=== PATIENT | male | born 1980 | race Caucasian/White ===

== ENCOUNTER 2018-11-26 08:02 | Inpatient (IN) | payer SELFPAY ==
[~2018-11-26] VITALS: Ht 190.5 cm; Wt 108.9 kg
[~2018-11-26 08:02] MED LIST: CODE-54 PO; NAPR-243 PO; OXYC-272 PO
--- OUTSIDE RECORDS SUMMARY | 2018-11-26 08:06 | XMS REPORT ---
Author Author Migration, Doctor Organization [facility] Address Unknown Phone Unavailable Care Team Providers Care Radiation Engineer Name Role Phone Migration, Doctor Unavailable Unavailable PROBLEMS Type Condition ICD9-CM Code [id number] Code Onset Dates Condition Status SNOMED Code Problem Pain in soft tissues of limb 729.5 Active 84034915 Problem Pain in joint, lower leg 719.46 Active 721228588 Problem Other, multiple and ill-defined closed fractures of lower limb 827.0 Active [id number] ALLERGIES No Information ENCOUNTERS Encounter Location Date Diagnosis [facility] [id number] [place] [address] Aug, [facility] [id number] [place] [address] Aug, [facility] [id number] [place] [address] Jun, [facility] [id number] [place] [address] Jun, [facility] [id number] [place] [address] Aug, [facility] [id number] [place] [address] Aug, [facility] [id number] [place] [address] Aug, [facility] [id number] [place] [address] Aug, [facility] [id number] [place] [address] Aug, [facility] [id number] [place] [address] Aug, [facility] [place] [facility] [address] [id number] [place] [address] Aug, [facility] [place] [facility] [address] [id number] [place] [address] Aug, [facility] [place] [facility] [address] [id number] [place] [address] Jul, [facility] [place] [facility] [address] [id number] [place] [address] Jul, [facility] [place] [facility] [address] [id number] [place] [address] Apr, [facility] [place] [facility] [address] [id number] [place] [address] Apr, [facility] [place] [facility] [address] [id number] [place] [address] Mar, [facility] [place] [facility] [address] [id number] [place] [address] Mar, [facility] [place] [facility] [address] [id number] [place] [address] Feb, [facility] [place] [facility] [address] [id number] [place] [address] Feb, [facility] [place] [facility] [address] [id number] [place] [address] Feb, [facility] [place] [facility] [address] [id number] [place] [address] Feb, [facility] [place] [facility] [address] [id number] [place] [address] Dec, [facility] [place] [facility] [address] [id number] [place] [address] Dec, [facility] [place] [facility] [address] [id number] [place] [address] Nov, [facility] [place] [facility] [address] [id number] [address] Nov, [facility] [address] [id number] [address] September, [facility] [address] [address] September, [facility] [address] [address] Aug, [facility] [id number] [place] [address] Aug, [facility] [address] [address] Aug, [facility] [id number] [place] [address] Aug, [facility] [address] [address] Mar, [facility] [address] [address] Mar, [facility] [address] [id number] [address] Nov, IMMUNIZATIONS No Known Immunizations SOCIAL HISTORY Never Assessed REASON FOR VISIT EMR-[facility] PLAN OF CARE VITAL SIGNS MEDICATIONS Unknown Medications RESULTS No Results PROCEDURES No Known procedures INSTRUCTIONS MEDICATIONS ADMINISTERED No Known Medications
--- OUTSIDE RECORDS SUMMARY | 2018-11-26 08:06 | XMS REPORT | Continuity of Care Document ---
Author Organization Unknown Address Unknown Allergies Active Description Code Type Severity Reaction Onset Reported/Identified Relationship to Patient Clinical Status Yes Demerol Drug Allergy 08/20/2012 Yes Demerol Drug Allergy N/A N/A 08/20/2012 Yes meperidine [id number] Drug Allergy Unknown N/A 01/16/2014 Yes meperidine [id number] Drug Allergy Unknown PT HAS RECEIVED 07/05/2014 Medications There is no data. Problems Date Dx Coded Attending Type Code Diagnosis Diagnosed By 05/27/2010 316 [employer] WITH DISEASES CLASSIFIED ELSEWHERE 05/27/2010 316 [employer] WITH DISEASES CLASSIFIED ELSEWHERE 05/27/2010 316 [employer]ATED WITH DISEASES CLASSIFIED ELSEWHERE 05/27/2010 LISETH ISAAC DO 316 [employer] WITH DISEASES CLASSIFIED ELSEWHERE 05/27/2010 GONZALEZ GOLDBERG MD 316 [employer] WITH DISEASES CLASSIFIED ELSEWHERE 05/27/2010 LISETH ISAAC DO 316 [employer] WITH DISEASES CLASSIFIED ELSEWHERE 05/27/2010 316 [employer] WITH DISEASES CLASSIFIED ELSEWHERE 05/27/2010 PRISCILLA LUNDY MD 316 [employer] WITH DISEASES CLASSIFIED ELSEWHERE 08/20/2012 719.46 PAIN IN JOINT INVOLVING LOWER LEG 08/20/2012 719.46 joint pain in the left knee 08/20/2012 719.46 joint pain in the left knee 08/20/2012 LISETH ISAAC DO 719.46 joint pain in the left knee 08/20/2012 GONZALEZ GOLDBERG MD 719.46 joint pain in the left knee 08/20/2012 LISETH ISAAC DO 719.46 joint pain in the left knee 08/20/2012 PRISCILLA LUNDY MD 719.46 joint pain in the left knee 08/27/2013 LISETH ISAAC DO 729.5 PAIN IN LIMB 08/27/2013 PRISCILLA LUNDY MD 729.5 PAIN IN LIMB 01/16/2014 PAOLA HERNANDEZ DO Ot 844.9 01/16/2014 PAOLA HERNANDEZ DO Ot 959.7 01/16/2014 PAOLA HERNANDEZ DO Ot E000.8 01/16/2014 PAOLA HERNANDEZ DO Ot E849.0 01/16/2014 PAOLA HERNANDEZ DO Ot E927.0 06/28/2014 KAMRON HUTCHINS, PRISCILLA 827.0 OTHER MULTIPLE AND ILL-DEFINED FRACTURES OF LOWER LIMB CLOSED 06/28/2014 Ot 724.5 06/28/2014 VINNIE MERRITT MD Ot 719.46 06/28/2014 VINNIE MERRITT MD Ot 719.46 07/05/2014 CHAD HUTCHINS, JAZMINE Ordonez Ot 823.01 07/05/2014 JAZMINE BONILLA MD Ot 824.0 07/05/2014 JAZMINE BONILLA MD Ot 845.00 07/05/2014 JAZMINE BONILLA MD Ot E000.8 07/05/2014 JAZMINE BONILLA MD Ot E849.6 07/05/2014 JAZMINE BONILLA MD Ot E888.9 Procedures Code [place] [address] XRAY KNEE LEFT, 1 OR 2 VIEWS 08/20/2012 ORTHO WILLAM PERRY 08/20/2012 00540 ROUTINE VENIPUNCTURE 09/04/2012 82218 MRI EXTREMITY JOINT, LOWER LEFT, W/O CONTRAST 09/08/2012 85710 US LOWER EXTREMITY ULTRASOUND 09/08/2012 04464 CMP 09/08/2012 59149 CBC 09/08/2012 Orthopedi Willam Perry 11/27/2012 34538 JOINT INJECTION- LARGE JOINT (SPECIFY MEDCIN DESCRIPTION) 02/19/2013 83826 XRAY FOOT RIGHT COMP MIN 3 VIEWS 08/27/2013 50790 XRAY TIBIA/FIBULA RIGHT 06/28/2014 Results There is no data. Encounters ACCT No. Visit Date/Time Discharge Status Pt. Type Provider Facility Loc./Unit Complaint [id number] 06/28/2014 11:47:00 06/28/2014 23:59:59 CLS Outpatient PRISCILLA LUNDY MD [id number] 08/27/2013 13:42:00 08/27/2013 23:59:59 CLS Outpatient PONCHO CROW LISETH Jsoe [id number] 08/05/2013 10:52:00 08/05/2013 23:59:59 CLS Outpatient GONZALEZ GOLDBERG MD [id number] 02/19/2013 15:12:00 02/19/2013 23:59:59 CLS Outpatient LISETH ISAAC DO [id number] 08/20/2012 09:08:00 08/20/2012 23:59:59 CLS Outpatient [id number] 11/19/2011 12:30:00 11/19/2011 23:59:59 CLS Outpatient [id number] 11/27/2012 14:29:00 Document Registration [id number] 09/04/2012 15:16:00 Document Registration [id number] 07/05/2014 09:30:00 07/05/2014 17:50:00 DIS Outpatient JAZMINE BONILLA MD [facility] [id number] 07/02/2014 13:35:00 07/02/2014 23:59:59 CLS Outpatient JAZMINE BONILLA MD [facility] PREOP [id number] 01/16/2014 17:23:00 01/16/2014 18:35:00 DIS Emergency PAOLA HERNANDEZ DO [facility] ER [id number] 09/18/2012 11:58:00 09/18/2012 23:59:59 CLS Outpatient VINNIE MERRITT MD [facility] RAD [id number] 09/12/2012 09:51:00 09/12/2012 23:59:59 CLS Outpatient VINNIE MERRITT MD [facility] RAD [id number] 11/23/2009 12:46:00 Document Registration
--- OUTSIDE RECORDS SUMMARY | 2018-11-26 08:06 | XMS REPORT ---
Author Author Migration, Doctor Organization [facility] Address Unknown Phone Unavailable Care Team Providers Care Blue Leather Setter Name Role Phone Migration, Doctor Unavailable Unavailable PROBLEMS Type Condition ICD9-CM Code BSB92-ML Code Onset Dates Condition Status SNOMED Code Problem Pain in soft tissues of limb 729.5 Active 67722679 Problem Pain in joint, lower leg 719.46 Active 718846442 Problem Other, multiple and ill-defined closed fractures of lower limb 827.0 Active 96581255 ALLERGIES Substance Reaction Event Type Date Status Demerol Unknown Drug Allergy Aug, Active ENCOUNTERS Encounter Location Date Diagnosis [facility] [id number] [place] [address] Aug, [facility] [id number] [place] [address] Aug, [facility] [id number] [place] [address] Jun, [facility] [id number] [place] [address] Jun, [facility] [id number] [place] [address] Aug, [facility] [id number] [place] [address] Aug, [facility] [id number] [place] [address] Aug, [facility] [id number] [place] [address] Aug, [facility] [id number] [place] [address] Aug, [facility] [id number] [place] [address] Aug, [facility] [place] [facility] [address] [id number] [place] [address] Aug, [facility] [place] [facility] [address] [id number] [place] [address] Aug, [facility] [place] [facility] [address] [id number] [place] [address] Jul, [facility] [place] [facility] [address] [id number] [place] [address] Jul, [facility] [place] [facility] [address] [id number] [place] [address] Apr, [facility] [place] [facility] [address] [id number] [place] [address] Apr, [facility] [place] [facility] [address] [id number] [place] [address] Mar, [facility] [place] [facility] [address] [id number] [place] [address] Mar, [facility] [place] [facility] [address] [id number] [place] [address] Feb, [facility] [place] [facility] [address] [id number] [place] [address] Feb, [facility] [place] [facility] [address] [id number] [place] [address] Feb, [facility] [place] [facility] [address] [id number] [place] [address] Feb, [facility] [place] [facility] [address] [id number] [place] [address] Dec, [facility] [place] [facility] [address] [id number] [place] [address] Dec, [facility] [place] [facility] [address] [id number] [place] [address] Nov, [facility] [place] [facility] [address] [address] Nov, [facility] [address] [address] September, [facility] [address] [address] September, [facility] [address] [address] Aug, [facility] [address] [address] Aug, [facility] [address] [address] Aug, [facility] [address] [address] Aug, [facility] [address] [address] Mar, [facility] [address] [address] Mar, [facility] [id number] [address] Nov, IMMUNIZATIONS No Known Immunizations SOCIAL HISTORY Never Assessed REASON FOR VISIT EMR-[facility] PLAN OF CARE VITAL SIGNS MEDICATIONS Unknown Medications RESULTS No Results PROCEDURES No Known procedures INSTRUCTIONS MEDICATIONS ADMINISTERED No Known Medications
[2018-11-26] MEDS ORDERED: NS IV 1000 ML 1,000 ML IV SCH (08:32)
[2018-11-26] MEDS ORDERED: KETOROLAC 30 MG/ML VIAL IVP STA (08:32)
[2018-11-26] MEDS ORDERED: ACETAMINOPHEN 500 MG TAB (TYLENOL) PO PRN ×2 (08:45→11:30)
--- NOTE | 2018-11-26 08:45 | ED Upper Extremity ---
General Chief Complaint: Upper Extremity Stated Complaint: ELBOW INJ Nursing Triage Note: PT AMB TO RM 10 WITH COMPLAINT OF RIGHT ELBOW PAIN, SWELLING, AND REDNESS. STATES HE WAS BIT BY SOMETHING IN THE LAST FEW DAYS. STATES REDNESS HAS WORSENED. STATES LANCED AREA AT HOME, DID NOT SQUEEZE ANYTHING OUT. Nursing Sepsis Screen: No Definite Risk Source: patient Exam Limitations: no limitations History of Present Illness Date Seen by Provider: Nov 26, 2018 Time Seen by Provider: 08:22 Initial Comments Here with report of right elbow pain and swelling as well as redness that is increasing over the last 12 hours. He thinks he got bit by something on the injured elbow a few days ago. Noted swelling to the area. Tried to mary lou it with a needle last night and he did not get any purulent drainage. Redness increased. He did frank the wound edges. Redness does appear to be slightly outside of the border currently. Does have fever as tachycardic. He did have to ride a bike here today. States the redness and pain worsens during the bike ride. He has not had anything for pain or fever today. Onset: other (2 days ago) Severity: moderate Pain/Injury Location: right arm, right elbow Method of Injury: unknown Modifying Factors: Improves With Immobilization; Worse With Movement; Improves With Rest Allergies and Home Medications Allergies Coded Allergies: meperidine (Unverified Allergy, Unknown, PT HAS RECEIVED FENTANYL IN THE PAST W/O ISSUE, 07/05/14) Home Medications Naproxen 500 Mg Tablet, 500 MG PO BID, (Reported) Oxycodone Hcl/Acetaminophen 1 Tab Tablet, 1-2 TAB PO Q4-6HR PRN for PAIN MAY TAKE 1 OR 2 TABS BY MOUTH EVERY 4 HRS NEEDED FOR PAIN. LAST DOSE, 2 TABS, GIVEN AT 4:25 PM 07/05/14. DO NOT EXCEED 4000 MG TYLENOL IN A 24 HR PERIOD. Prescribed by: PATRIC HANSEN on 07/05/14 5961 Patient Home Medication List Home Medication List Reviewed: Yes Review of Systems Constitutional: see HPI; No chills, No fever EENTM: no symptoms reported Respiratory: no symptoms reported Cardiovascular: no symptoms reported Gastrointestinal: no symptoms reported Musculoskeletal: see HPI, joint pain, joint swelling, muscle pain Skin: change in color, lesions Psychiatric/Neurological: No Symptoms Reported All Other Systems Reviewed Negative Unless Noted: Yes Past Upijvwz-Zjlzhl-Bxzqmm Hx Past Med/Social Hx: Reviewed Nursing Past Med/Soc Hx Patient Social History Alcohol Use: Denies Use Recreational Drug Use: No Smoking Status: Current Everyday Smoker Type Used: Cigarettes Recent Foreign Travel: No Contact w/Someone Who Travel: No Recent Infectious Disease Expo: No Past Medical History Surgeries: Yes Appendectomy, Orthopedic Respiratory: No Cardiac: No Neurological: No Reproductive Disorders: No Sexually Transmitted Disease: No Gastrointestinal: No Musculoskeletal: Yes (RIGHT ANKLE) Fibromyalgia Endocrine: No Cancer: No Psychosocial: No Integumentary: No Blood Disorders: No Family Medical History Reviewed Nursing Family Hx Physical Exam Vital Signs Vital Signs - First Documented 11/26/18 08:09 Temp 100.2 Pulse 113 Resp 20 B/P (MAP) 140/91 (107) Pulse Ox 97 O2 Delivery Room Air Capillary Refill : Less Than 3 Seconds Height, Weight, BMI Height: 6'3.00" Weight: 240lbs. oz. 108.089114wq; BMI Method:Stated General Appearance: WD/WN, no apparent distress HEENT: PERRL/EOMI, pharynx normal Neck: full range of motion, supple Cardiovascular: no murmur, tachycardia Respiratory: lungs clear, normal breath sounds, no respiratory distress Gastrointestinal: non tender, soft Back: normal inspection, no CVA tenderness, no vertebral tenderness Shoulder: normal inspection, normal ROM Elbow/Forearm: normal ROM, Right, pain (around the elbow both above and below where there is noted to be swelling and erythema), soft tissue tenderness, swelling (involving the right arm. Greatest around the right elbow. There is an indurated/tight spot to the elbow prominence with small wound centrally in the area that is 3-4 mm.) Wrist: Yes normal inspection, Yes no evidence of injury, Yes normal ROM Hand: normal inspection, non-tender, normal ROM, Bilateral Neurologic/Psychiatric: alert, oriented x 3 Skin: warm/dry, other (erythema noted to right arm from mid biceps down to mid forearm circumferentially. Swelling noted in the same area.) Progress/Results/Core Measures Results/Orders Lab Results Laboratory Tests Test 11/26/18 08:49 Range/Units White Blood Count 14.8 H 4.3-11.0 10^3/uL Red Blood Count 4.75 4.35-5.85 10^6/uL Hemoglobin 14.0 13.3-17.7 G/DL Hematocrit 42 40-54 % Mean Corpuscular Volume 88 80-99 FL Mean Corpuscular Hemoglobin 30 25-34 PG Mean Corpuscular Hemoglobin Concent 34 32-36 G/DL Red Cell Distribution Width 13.6 10.0-14.5 % Platelet Count 357 130-400 10^3/uL Mean Platelet Volume 9.2 7.4-10.4 FL Neutrophils (%) (Auto) 61 42-75 % Lymphocytes (%) (Auto) 27 12-44 % Monocytes (%) (Auto) 10 0-12 % Eosinophils (%) (Auto) 1 0-10 % Basophils (%) (Auto) 0 0-10 % Neutrophils # (Auto) 9.1 H 1.8-7.8 X 10^3 Lymphocytes # (Auto) 4.0 1.0-4.0 X 10^3 Monocytes # (Auto) 1.5 H 0.0-1.0 X 10^3 Eosinophils # (Auto) 0.2 0.0-0.3 10^3/uL Basophils # (Auto) 0.1 0.0-0.1 10^3/uL Neutrophils % (Manual) 45 % Lymphocytes % (Manual) 39 % Monocytes % (Manual) 7 % Eosinophils % (Manual) 2 % Basophils % (Manual) 2 % Band Neutrophils 1 % Hypersegmented Neutrophils SLIGHT Reactive Lymphocytes 4 % Toxic Granulation 1+ Poikilocytosis SLIGHT Stomatocytes SLIGHT Elliptocytes SLIGHT Prothrombin Time 13.6 12.2-14.7 SEC INR Comment 1.0 0.8-1.4 Activated Partial Thromboplast Time 33 24-35 SEC Sodium Level 137 135-145 MMOL/L Potassium Level 4.2 3.6-5.0 MMOL/L Chloride Level 101 98-107 MMOL/L Carbon Dioxide Level 24 21-32 MMOL/L Anion Gap 12 5-14 MMOL/L Blood Urea Nitrogen 19 H 7-18 MG/DL Creatinine 1.12 0.60-1.30 MG/DL Estimat Glomerular Filtration Rate > 60 BUN/Creatinine Ratio 17 Glucose Level 99 70-105 MG/DL Lactic Acid Level 0.79 0.50-2.00 MMOL/L Calcium Level 9.9 8.5-10.1 MG/DL Corrected Calcium 9.5 8.5-10.1 MG/DL Total Bilirubin 0.5 0.1-1.0 MG/DL Aspartate Amino Transf (AST/SGOT) 20 5-34 U/L Alanine Aminotransferase (ALT/SGPT) 43 0-55 U/L Alkaline Phosphatase 92 40-136 U/L C-Reactive Protein High Sensitivity 10.33 H 0.00-0.50 MG/DL Total Protein 8.0 6.4-8.2 GM/DL Albumin 4.5 3.2-4.5 GM/DL My Orders Orders - SOTO SIERRA MD Cbc With Automated Diff (11/26/18 08:32) Comprehensive Metabolic Panel (11/26/18 08:32) Blood Culture (11/26/18 08:32) Sputum Culture (11/26/18 08:32) Protime With Inr (11/26/18 08:32) Partial Thromboplastin Time (11/26/18 08:32) Acetaminophen Tablet (Tylenol Tablet) (11/26/18 08:45) Ed Iv/Invasive Line Start (11/26/18 08:32) Vital Signs Adult Sepsis Patie Q15M (11/26/18 08:32) O2 (11/26/18 08:32) Remove Rings In Anticipation O (11/26/18 08:32) Lactic Acid Analyzer (11/26/18 08:32) Ns Iv 1000 Ml (Sodium Chloride 0.9%) (11/26/18 08:32) Hs C Reactive Protein (11/26/18 08:32) Elbow, Right, 3 Views (11/26/18 08:32) Ketorolac Injection (Toradol Injection) (11/26/18 08:32) Manual Differential (11/26/18 08:49) Ceftriaxone For Iv Use (Rocephin For I (11/26/18 10:15) Tdap (Boostrix) Im (11/26/18 10:30) Medications Given in ED Current Medications Medications Dose Ordered Sig/Laura Route Start Time Stop Time Status Last Admin Dose Admin Acetaminophen 1,000 mg ONCE PRN PO 11/26/18 08:45 11/26/18 08:56 DC 11/26/18 08:55 1,000 MG Vital Signs/I&O 11/26/18 08:09 Temp 100.2 Pulse 113 Resp 20 B/P (MAP) 140/91 (107) Pulse Ox 97 O2 Delivery Room Air Blood Pressure Mean: 107 Progress Progress Note : Progress Note Seen and evaluated. IV, labs, blood cultures and lactic acid ordered. Normal saline 1 L bolus, Toradol 30 mg IV and Tylenol 1 g by mouth. Patient does have findings for sepsis including tachycardia and febrile with concerning area of infection. Monitor patient. 1017: Labs reviewed. Patient noted to have cellulitis and findings of systemic inflammation with elevated CRP and white count. Rocephin 1 g IV ordered. Tetanus updated. I discussed the case with Dr. Cook at 1015 and she accepts patient for admission. I did discuss the case with Dr. Knedall at 1017 and he accepts patient in consult. He requests ultrasound of the elbow which was ordered. We will initiate Rocephin and vancomycin orders. Discussed with patient and family who agree. Admit, inpatient status. Diagnostic Imaging Diagonstic Imaging: Xray Plain Films/CT/US/NM/MRI: elbow Comments [facility] [place] [place] NAME: AL CANCHOLA [facility] REC#: [id number] PT STATUS: REG ER : 1980 PHYSICIAN: SOTO SIERRA MD ADMIT DATE: 11/26/18/ER Draft Date of Exam:11/26/18 ELBOW, RIGHT, 3 VIEWS INDICATION: Recent injury to the right elbow, now with redness and swelling as well as fever. Time of exam: 9:12 AM 3 views of the right elbow were obtained. There is moderate soft tissue swelling about the posterior elbow. No soft tissue gas is seen. No bony destructive changes are seen. No definite elbow joint effusion is identified. No fracture or dislocation is seen. IMPRESSION: Moderate posterior soft tissue swelling. No other significant abnormality is seen. Dictated on workstation # [id number] Dict: 11/26/1816 Trans: 11/26/18 0921 MOLLY [id number] Interpreted by: ERNESTO YIP MD Electronically signed by: Departure Communication (Admissions) Time/Spoke to Admitting Phy: 10:15 Time/Spoke to Consulting Phy: 10:17 Impression Primary Impression: Right arm cellulitis Disposition: ADMITTED INPATIENT Condition: Stable Admissions Decision to Admit Reason: Admit from ER (General) Decision to Admit/Date: Nov 26, 2018 Time/Decision to Admit Time: 10:15 SOTO SIERRA MD Nov 26, 2018 08:45
[2018-11-26 09:06] LABS: BASOPHILS # (AUTO) 0.1 10^3/uL (0.0-0.1); BASOPHILS % (AUTO) 0 % (0-10); EOSINOPHILS # (AUTO) 0.2 10^3/uL (0.0-0.3); EOSINOPHILS % (AUTO) 1 % (0-10); HEMATOCRIT 42 % (40-54); LYMPHOCYTES % (AUTO) 27 % (12-44); MEAN CORPUSCULAR HEMOGLOBIN 30 PG (25-34); MEAN CORPUSCULAR HGB CONC 34 G/DL (32-36); MEAN CORPUSCULAR VOLUME 88 FL (80-99); MEAN PLATELET VOLUME 9.2 FL (7.4-10.4); MONOCYTES # (AUTO) 1.5 X 10^3 (0.0-1.0); MONOCYTES % (AUTO) 10 % (0-12); NEUTROPHILS # (AUTO) 9.1 X 10^3 (1.8-7.8); NEUTROPHILS % (AUTO) 61 % (42-75); PLATELET COUNT 357 10^3/uL (130-400); RED CELL DISTRIBUTION WIDTH 13.6 % (10.0-14.5); WHITE BLOOD COUNT 14.8 10^3/uL (4.3-11.0)
--- NOTE | 2018-11-26 09:21 | Diagnostic Imaging Report ---
INDICATION: Recent injury to the right elbow, now with redness and swelling as well as fever. Time of exam: 9:12 AM 3 views of the right elbow were obtained. There is moderate soft tissue swelling about the posterior elbow. No soft tissue gas is seen. No bony destructive changes are seen. No definite elbow joint effusion is identified. No fracture or dislocation is seen. IMPRESSION: Moderate posterior soft tissue swelling. No other significant abnormality is seen. Dictated by: Dictated on workstation # [id number]
[2018-11-26 09:29] LABS: PROTHROMBIN TIME PATIENT 13.6 SEC (12.2-14.7)
[2018-11-26 09:34] LABS: ALANINE AMINOTRANSFERASE 43 U/L (0-55); ALBUMIN 4.5 GM/DL (3.2-4.5); ALKALINE PHOSPHATASE 92 U/L (40-136); BILIRUBIN,TOTAL 0.5 MG/DL (0.1-1.0); BUN/CREATININE RATIO 17; CALCIUM 9.9 MG/DL (8.5-10.1); CARBON DIOXIDE 24 MMOL/L (21-32); CHLORIDE 101 MMOL/L (98-107); CREATININE SERUM 1.12 MG/DL (0.60-1.30); GFR ESTIMATED > 60; GLUCOSE 99 MG/DL (70-105); POTASSIUM 4.2 MMOL/L (3.6-5.0); SODIUM 137 MMOL/L (135-145)
[2018-11-26 10:12] LABS: BAND NEUTROPHILS 1 %; BASOPHILS % (MANUAL) 2 %; ELLIPT/OVALOCYTES SLIGHT; EOSINOPHILS % (MANUAL) 2 %; HYPERSEGMENTED NEUT SLIGHT; LYMPHOCYTES % (MANUAL) 39 %; MONOCYTES % (MANUAL) 7 %; NEUTROPHILS % (MANUAL) 45 %; POIKILOCYTOSIS SLIGHT; REACTIVE LYMPHOCYTES 4 %; STOMATOCYTES SLIGHT
[2018-11-26 10:13] LABS: TOXIC GRANULATION/VACUOLAZATIO 1+
[2018-11-26] MEDS ORDERED: cefTRIAXone FOR IV USE 1,000 MG in WATER (STERILE) FOR INJECTION 10 ML IV ONE (10:15)
[2018-11-26] MEDS ORDERED: TETANUS,DIPTH,PERTUSS P/F (BOOSTRIX) 0.5 ML VIAL IM ONE (10:30)
[2018-11-26] MEDS ORDERED: fentaNYL INJECTION 100 MCG/2 ML AMP IV PRN (11:30)
--- NOTE | 2018-11-26 11:30 | NUR ---
AL CANCHOLA admitted to room 410-1, with an admitting diagnosis of RIGHT ARM CELLULITIS, on 11/26/18 from ED via W/C, accompanied by ED STAFF. AL CANCHOLA introduced to surroundings, call light, bed controls, phone, TV, temperature control, lights, meal times, smoking policy, visitor policy, side rail policy, bathrooms and showers. Patient Rights given to patient in the handbook. AL CANCHOLA verbalizes understanding that [facility] is not responsible for the loss or damage to any personal effects or valuables that are kept in the patients possession during their hospitalization.
--- NOTE | 2018-11-26 11:33 | History & Physical-Hospitalist ---
History of Present Illness HPI/Chief Complaint CC: Right arm cellulitis HPI: This is a 38yoWM who presented to the ER with severe right arm swelling with redness and cellulitis. He thought that there was something in a puncture wound and he tried to explore it on his own at home and this happened three days ago and the right arm has begun to have an increase in swelling and erythema. He had a fever of 100.4 on admission and white count is 15,000. He was given a Tet anus update and Dr. Kendall has been consulted incase abscess formation occurs. He does have a history of working at [employer] in the [employer] department for ten years but has been disabled for a couple of years after breaking both legs requiring him to quit working. He does smoke, doesn't drink a lot of alcohol and is in agreement for the IV antibiotics and Dr. Kendall consultation. Source: patient Exam Limitations: no limitations Date Seen 11/26/18 Time Seen by a Provider: 11:30 Attending Physician Vero Cook DO PCP Referring Physician Date of Admission Nov 26, 2018 at 10:35 Home Medications & Allergies Home Medications Reviewed patient Home Medication Reconciliation performed by pharmacy medication reconciliations entry level installation technician and/or nursing. Patients Allergies have been reviewed. Allergies Allergies Coded Allergies meperidine (Unverified Allergy, Unknown, PT HAS RECEIVED FENTANYL IN THE PAST W/O ISSUE, 07/05/14) Past Pvluomt-Rxifle-Lfmjtf Hx Past Med/Social Hx: Reviewed Nursing Past Med/Soc Hx, Reviewed and Corrections made Patient Social History Marrital Status: cohabiting Alcohol Use: Denies Use Recreational Drug Use: No Smoking Status: Current Everyday Smoker Type Used: Cigarettes Recent Foreign Travel: No Contact w/other who traveled: No Recent Infectious Disease Expo: No Past Medical History Surgeries: Appendectomy, Orthopedic Reproductive: No Sexually Transmitted Disease: No Musculoskeletal: Fibromyalgia History of Blood Disorders: No Family History Reviewed Nursing Family Hx Review of Systems Constitutional: see HPI, fever EENTM: no symptoms reported Respiratory: no symptoms reported Cardiovascular: no symptoms reported Gastrointestinal: no symptoms reported Genitourinary: no symptoms reported Musculoskeletal: joint pain (right elbow) Skin: no symptoms reported Psychiatric/Neurological: No Symptoms Reported Physical Exam Physical Exam Vital Signs Vital Signs - First Documented 11/26/18 08:09 Temp 100.2 Pulse 113 Resp 20 B/P (MAP) 140/91 (107) Pulse Ox 97 O2 Delivery Room Air Capillary Refill : Less Than 3 Seconds Height, Weight, BMI Height: 6'3.00" Weight: 240lbs. oz. [id number]; BMI Method:Stated General Appearance: No Apparent Distress, WD/WN, Chronically ill Eyes: Right Eye Normal Inspection, Right Eye PERRL HEENT: PERRL/EOMI, Normal ENT Inspection, Pharynx Normal, Moist Mucous Membranes Neck: Full Range of Motion, Normal Inspection, Non Tender Respiratory: Chest Non Tender, Lungs Clear, Normal Breath Sounds, No Accessory Muscle Use, No Respiratory Distress Cardiovascular: Regular Rate, Rhythm, No Edema, No Gallop, No JVD, No Murmur, Normal Peripheral Pulses Gastrointestinal: Normal Bowel Sounds, No Organomegaly, No Pulsatile Mass, Non Tender, Soft Back: Normal Inspection, No CVA Tenderness, No Vertebral Tenderness Extremity: Normal Capillary Refill, Normal Inspection, Normal Range of Motion, Non Tender, No Calf Tenderness, No Pedal Edema, Other (right elbow region with erythem and elbow pain to palpation) Neurologic/Psychiatric: Alert, Oriented x3, No Motor/Sensory Deficits, Normal Mood/Affect Skin: Normal Color, Warm/Dry Lymphatic: No Adenopathy Results Results/Procedures Labs Laboratory Tests 11/26/18 08:49 Patient resulted labs reviewed. Assessment/Plan Admission Diagnosis Assessment: Right arm cellulitis Smoker Previous orthopedic leg surgeries Plan: Abx Dr Kendall consultation is appreciated Admission Status: Inpatient Order (span 2 midnights) Reason for Inpatient Admission: Severe cellulits with sepsis and elevated wbc Diagnosis/Problems Diagnosis/Problems (1) Right arm cellulitis Status: Acute (2) Fever Status: Acute Qualifiers: Fever type: unspecified Qualified Codes: R50.9 - Fever, unspecified (3) Smoker Status: Chronic (4) Leukocytosis Status: Acute Qualifiers: Leukocytosis type: leukemoid reaction Qualified Codes: D72.823 - Leukemoid reaction VERO COOK DO Nov 26, 2018 11:33
[2018-11-26 12:00] VITALS: BP 123/77
[2018-11-26] MEDS ORDERED: VANCOMYCIN INJECTION 2,250 MG in NS IV 500 ML 500 ML IV NR (12:00)
[2018-11-26] MEDS ORDERED: ASPI-983 PO (13:00)
--- NOTE | 2018-11-26 13:00 | NUR ---
PATIENT STATES HE HAS BEEN TAKING AND OTC ASPIRIN 81MG DAILY. HE DOES NOT TAKE ANY PRESCRIPTION MEDICATION OR ANYTHING ELSE OTC.
--- NOTE | 2018-11-26 15:13 | Diagnostic Imaging Report ---
INDICATION: Right arm cellulitis and right elbow swelling. FINDINGS: Sonographic interrogation of the area of swelling in the right arm was performed. There is edema identified in the subcutaneous tissues. There is a small complex fluid collection just deep to the skin wound measuring 2.2 x 0.6 x 1.1 cm. No internal vascularity is seen. IMPRESSION: Subcutaneous edema as well as small complex fluid collection just deep to the wound, as described. This may represent a small abscess or hematoma. Dictated by: Dictated on workstation # [id number]
[2018-11-26 16:23] VITALS: BP 113/64
--- NOTE | 2018-11-26 17:03 | Consultation - Surgery ---
History of Present Illness History of Present Illness Patient Consulted On(lorie/time) 11/26/18 16:57 Time Seen by Provider: 14:36 History of Present Illness Surgery asked to consult regarding Right Upper extremity cellulitis possible abscess (Elbow) HPI per ED: Here with report of right elbow pain and swelling as well as redness that is increasing over the last 12 hours. He thinks he got bit by something on the injured elbow a few days ago. Noted swelling to the area. Tried to mary lou it with a needle last night and he did not get any purulent drainage. Redness increased. He did frank the wound edges. Redness does appear to be slightly outside of the border currently. Does have fever as tachycardic. He did have to ride a bike here today. States the redness and pain worsens during the bike ride. He has not had anything for pain or fever today. Onset: other (2 days ago) Severity: moderate Pain/Injury Location: right arm, right elbow Method of Injury: unknown Modifying Factors: Improves With Immobilization; Worse With Movement; Improves With Rest When I spoke to pt he was getting his US and he thought the swelling and pain were a little better. He rated the pain as 6 out of 10, described as dull, achey and constant. His girlfriend states she has had 2 episodes like this and she was told she had MRSA. Allergies and Home Medications Allergies Coded Allergies: meperidine (Unverified Allergy, Unknown, PT HAS RECEIVED FENTANYL IN THE PAST W/O ISSUE, 07/05/14) Home Medications Aspirin 81 Mg Tablet.dr, 81 MG PO DAILY, (Reported) Patient Home Medication List Home Medication List Reviewed: Yes Past Lairakk-Mmkuqu-Usknyf Hx Patient Social History Alcohol Use: Denies Use Recreational Drug Use: No Smoking Status: Current Everyday Smoker Type Used: Cigarettes Recent Foreign Travel: No Contact w/Someone Who Travel: No Recent Infectious Disease Expo: No Surgeries History of Surgeries: Yes Surgeries: Appendectomy, Orthopedic Respiratory History of Respiratory Disorde: No Cardiovascular History of Cardiac Disorders: No Neurological History of Neurological Disord: No Reproductive System Hx Reproductive Disorders: No Sexually Transmitted Disease: No Gastrointestinal History of Gastrointestinal Di: No Musculoskeletal History of Musculoskeletal Dis: Yes (RIGHT ANKLE) Musculoskeletal Disorders: Fibromyalgia Endocrine History of Endocrine Disorders: No Cancer History of Cancer: No Psychosocial History of Psychiatric Problem: No Integumentary History of Skin or Integumenta: No Blood Transfusions History of Blood Disorders: No Family Medical History Significant Family History: Other Conditions/Hx (Pt states his parents have no medical problems; denied DM, HTN or CAD) Review of Systems-General Constitutional: chills; No diaphoresis, No weight loss EENTM: No blurred vision, No double vision, No mouth pain, No mouth swelling, No nose congestion Respiratory: No cough, No dyspnea on exertion Cardiovascular: No chest pain, No edema, No palpitations Gastrointestinal: No abdominal pain, No nausea, No vomiting Genitourinary: No dysuria, No frequency, No hematuria Musculoskeletal: joint pain, joint swelling, muscle pain, muscle stiffness, muscle cramps Skin: see HPI Psychiatric/Neurological: Denies Anxiety, Denies Depressed, Denies Seizure, Denies Tremors Other pt denies hx or abnromal bleeding or bruising Physical Exam-General Problems Physical Exam Vital Signs Vital Signs - First Documented 11/26/18 08:09 Temp 100.2 Pulse 113 Resp 20 B/P (MAP) 140/91 (107) Pulse Ox 97 O2 Delivery Room Air Capillary Refill : Less Than 3 Seconds General Appearance: WD/WN, mild distress Eyes: Bilateral Eye PERRL, Bilateral Eye EOMI HEENT: pharynx normal; No scleral icterus (R), No scleral icterus (L) Neck: non-tender, full range of motion, supple, normal inspection Respiratory: chest non-tender, lungs clear, normal breath sounds, no respiratory distress, no accessory muscle use Cardiovascular: regular rate, rhythm, no edema, no gallop, no JVD, no murmur Gastrointestinal: normal bowel sounds, non tender, soft, no organomegaly, no pulsatile mass Back: no CVA tenderness, no vertebral tenderness Extremities: no pedal edema, no calf tenderness, normal capillary refill, other (right arm is swollen from about mid-bicep down to hand, mildly erythematous in this area, appx 3-4 cm area of brighter red around the elbow, tender to touch and warm) Neurologic/Psychiatric: recreational assistant II-XII nml as tested, no motor/sensory deficits, alert, normal mood/affect, oriented x 3 Skin: normal color, warm/dry Lymphatic: no adenopathy (neck, axilla or groin) Data Review Labs Laboratory Tests 11/26/18 08:49: White Blood Count 14.8H, Red Blood Count 4.75, Hemoglobin 14.0, Hematocrit 42, Mean Corpuscular Volume 88, Mean Corpuscular Hemoglobin 30, Mean Corpuscular Hemoglobin Concent 34, Red Cell Distribution Width 13.6, Platelet Count 357, Mean Platelet Volume 9.2, Neutrophils (%) (Auto) 61, Lymphocytes (%) (Auto) 27, Monocytes (%) (Auto) 10, Eosinophils (%) (Auto) 1, Basophils (%) (Auto) 0, Neutrophils # (Auto) 9.1H, Lymphocytes # (Auto) 4.0, Monocytes # (Auto) 1.5H, Eosinophils # (Auto) 0.2, Basophils # (Auto) 0.1, Neutrophils % (Manual) 45, Lymphocytes % (Manual) 39, Monocytes % (Manual) 7, Eosinophils % (Manual) 2, Basophils % (Manual) 2, Band Neutrophils 1, Hypersegmented Neutrophils SLIGHT, Reactive Lymphocytes 4, Toxic Granulation 1+, Poikilocytosis SLIGHT, Stomatocytes SLIGHT, Elliptocytes SLIGHT, Prothrombin Time 13.6, INR Comment 1.0, Activated Partial Thromboplast Time 33, Sodium Level 137, Potassium Level 4.2, Chloride Level 101, Carbon Dioxide Level 24, Anion Gap 12, Blood Urea Nitrogen 19H, Creatinine 1.12, Estimat Glomerular Filtration Rate > 60, BUN/Creatinine Ratio 17, Glucose Level 99, Lactic Acid Level 0.79, Calcium Level 9.9, Corrected Calcium 9.5, Total Bilirubin 0.5, Aspartate Amino Transf (AST/SG OT) 20, Alanine Aminotransferase (ALT/SGPT) 43, Alkaline Phosphatase 92, C- Reactive Protein High Sensitivity 10.33H, Total Protein 8.0, Albumin 4.5 Assessment/Plan Assessment/Plan Assessment/Plan Right Arm Cellulitis and Abscess at Elbow I was there at bedside when US tech looked for abscess; found an appx 1cm colle ction of fluid about 1cm deep. Surrounding this area was a lot of edema/cellulitis seen with US. Plan is NPO after midnight, IV ABX, pain control and will go to the OR for I&D with possible packing of right arm abscess. Will also order consent for the procedure. I discussed risks and benefits of procedure with the pt; including but not limited to pain, bleeding, infection, scar and need for further procedure. All questions answered to his satisfaction. I did give him option of trying this at bedside, but he didn't want to risk too much pain. Clinical Quality Measures DVT/VTE Risk/Contraindication: Risk Factor Score Per Nursin RFS Level Per Nursing on Admit: 3=High KEVIN CALIXTO DO Nov 26, 2018 17:03
[2018-11-26 19:36] VITALS: BP 117/60
[2018-11-27] VITALS (14 sets, daily range): BP systolic 98–132; BP diastolic 60–89
[2018-11-27] MEDS: VANCOMYCIN 1,750 MG/NS 500 ML IVPB IV SCH ×4 (00:08→12:45)
[2018-11-27] MEDS: KETOROLAC 30 MG/ML VIAL IV PRN ×4 (04:33→21:21)
[2018-11-27 06:59] LABS: BASOPHILS # (AUTO) 0.1 10^3/uL (0.0-0.1); BASOPHILS % (AUTO) 0 % (0-10); EOSINOPHILS # (AUTO) 0.4 10^3/uL (0.0-0.3); EOSINOPHILS % (AUTO) 3 % (0-10); HEMATOCRIT 37 % (40-54); HEMOGLOBIN 12.3 G/DL (13.3-17.7); LYMPHOCYTES # (AUTO) 3.4 X 10^3 (1.0-4.0); LYMPHOCYTES % (AUTO) 30 % (12-44); MEAN CORPUSCULAR HEMOGLOBIN 30 PG (25-34); MEAN CORPUSCULAR HGB CONC 34 G/DL (32-36); MEAN CORPUSCULAR VOLUME 89 FL (80-99); MEAN PLATELET VOLUME 9.6 FL (7.4-10.4); MONOCYTES # (AUTO) 1.3 X 10^3 (0.0-1.0); MONOCYTES % (AUTO) 11 % (0-12); NEUTROPHILS # (AUTO) 6.3 X 10^3 (1.8-7.8); NEUTROPHILS % (AUTO) 56 % (42-75); PLATELET COUNT 296 10^3/uL (130-400); RED CELL DISTRIBUTION WIDTH 13.1 % (10.0-14.5); WHITE BLOOD COUNT 11.4 10^3/uL (4.3-11.0)
[2018-11-27 07:26] LABS: BUN/CREATININE RATIO 16; CALCIUM 8.6 MG/DL (8.5-10.1); CARBON DIOXIDE 22 MMOL/L (21-32); CHLORIDE 109 MMOL/L (98-107); CREATININE SERUM 0.79 MG/DL (0.60-1.30); GFR ESTIMATED > 60; GLUCOSE 91 MG/DL (70-105); POTASSIUM 4.3 MMOL/L (3.6-5.0); SODIUM 139 MMOL/L (135-145)
[2018-11-27] MEDS: cefTRIAXone 1,000 MG/SWFI 10 ML IV PUSH IV SCH ×2 (09:26)
--- NOTE | 2018-11-27 09:53 | Progress Note - Hospitalist ---
Subjective HPI/CC On Admission Date Seen by Provider: Nov 27, 2018 Time Seen by Provider: 09:30 CC: Right arm cellulitis HPI: This is a 38yoWM who presented to the ER with severe right arm swelling with redness and cellulitis. He thought that there was something in a puncture wound and he tried to explore it on his own at home and this happened three days ago and the right arm has begun to have an increase in swelling and erythema. He had a fever of 100.4 on admission and white count is 15,000. He was given a Tetanus update and Dr. Kendall has been consulted incase abscess formation occurs. He does have a history of working at [employer] in the [employer] department for ten years but has been disabled for a couple of years after breaking both legs requiring him to quit working. He does smoke, doesn't drink a lot of alcohol and is in agreement for the IV antibiotics and Dr. Kendall consultation. Subjective/Events-last exam Pt likely requiring I&D incision and drainage today NPO for the procedure Right arm is much improved with erythema and decreased pain Low grade fever last night of 99.0 Has no new complaints Review of Systems Musculoskeletal: arm pain Focused Exam Lactate Level 11/26/18 08:49: Lactic Acid Level 0.79 Objective Exam Vital Signs Vital Signs Date Time Temp Pulse Resp B/P (MAP) Pulse Ox O2 Delivery O2 Flow Rate FiO2 11/27/18 16:54 97.7 85 20 126/78 (94) 96 Room Air 11/27/18 12:10 3 Capillary Refill : Less Than 3 Seconds General Appearance: No Apparent Distress, WD/WN, Chronically ill HEENT: PERRL/EOMI, Normal ENT Inspection, Pharynx Normal, Moist Mucous Membranes Neck: Full Range of Motion, Normal Inspection, Non Tender Respiratory: Chest Non Tender, Lungs Clear, Normal Breath Sounds, No Accessory Muscle Use, No Respiratory Distress Cardiovascular: Regular Rate, Rhythm, No Edema, No Gallop, No JVD, No Murmur, Normal Peripheral Pulses Gastrointestinal: Normal Bowel Sounds, No Organomegaly, No Pulsatile Mass, Non Tender, Soft Back: Normal Inspection, No CVA Tenderness, No Vertebral Tenderness Extremity: Normal Capillary Refill, Normal Inspection, Normal Range of Motion, Non Tender, No Calf Tenderness, No Pedal Edema, Other (right elbow region with erythem and elbow pain to palpation) Neurologic/Psychiatric: Alert, Oriented x3, No Motor/Sensory Deficits, Normal Mood/Affect Skin: Normal Color, Warm/Dry Lymphatic: No Adenopathy Results/Procedures Lab Laboratory Tests 11/27/18 06:10 Patient resulted labs reviewed. Assessment/Plan Assessment and Plan Assess & Plan/Chief Complaint Assessment: Right elbow abscess with cellulitis s/p I&D per Dr Kendall POD # 0 Smoker Plan: Monitor labs Abx Monitor pain Diagnosis/Problems Diagnosis/Problems (1) Right arm cellulitis Status: Acute (2) Fever Status: Acute Qualifiers: Fever type: unspecified Qualified Codes: R50.9 - Fever, unspecified (3) Smoker Status: Chronic (4) Leukocytosis Status: Acute Qualifiers: Leukocytosis type: leukemoid reaction Qualified Codes: D72.823 - Leukemoid reaction Clinical Quality Measures DVT/VTE Risk/Contraindication: Risk Factor Score Per Nursin RFS Level Per Nursing on Admit: 3=High TATIANNA SMITH DO Nov 27, 2018 09:52
[2018-11-27] MEDS ORDERED: MIDAZOLAM 2 MG/2 ML (VERSED) VIAL ONE (10:14)
[2018-11-27] MEDS ORDERED: proPOfol 200 MG/20 ML (DIPRIVAN) VIAL IV ONE (10:14)
[2018-11-27] MEDS ORDERED: SEVOFLURANE (ULTANE) 15 ML INHAL SOLN ONE (10:14)
[2018-11-27] MEDS ORDERED: LIDOCAINE PF 2% 5 ML (XYLOCAINE) VIAL ONE (10:14)
[2018-11-27] MEDS ORDERED: fentaNYL INJECTION 100 MCG/2 ML AMP ONE (10:14)
[2018-11-27] MEDS ORDERED: ONDANSETRON 4 MG/2 ML (SDV) Z0FRAN ONE (10:17)
[2018-11-27] MEDS ORDERED: DEXAMETHASONE 10 MG/ML (DECADRON) 1 ML VIAL ONE (10:17)
--- NOTE | 2018-11-27 11:15 | Progress Note-Post Operative ---
Post-Operative Progess Note Surgeon (s)/Inverted Block Operator (s) Surgeon KEVIN CALIXTO DO Inverted Block Operator: none Pre-Operative Diagnosis Right elbow abscess Post-Operative Diagnosis same Procedure & Operative Findings Date of Procedure 11/27/18 Procedure Performed/Findings I&D with packing of right elbow abscess Anesthesia Type GET Estimated Blood Loss Estimated blood loss (mL): scant Specimens/Packing Specimens Removed fluid culture KEVIN CALIXTO DO Nov 27, 2018 11:15
[2018-11-27] MEDS ORDERED: HYDROmorphone 2 MG/ML VIAL (DILAUDID) ONE (11:20)
[2018-11-27] MEDS ORDERED: HYDROmorphone 2 MG/ML VIAL (DILAUDID) IV ONE (11:30)
[2018-11-27] MEDS ORDERED: ONDANSETRON 4 MG/2 ML (SDV) Z0FRAN IVP PRN ×2 (11:30→20:15)
--- NOTE | 2018-11-27 16:13 | OPERATIVE REPORT ---
DATE OF SERVICE: PREOPERATIVE DIAGNOSIS: Right elbow abscess. POSTOPERATIVE DIAGNOSIS: Right elbow abscess. PROCEDURE: Incision and drainage with packing of right elbow abscess. SURGEON: Froylan BECKER ASSIST: None. ANESTHESIA: General endotracheal tube. SPECIMEN: Fluid culture. BLOOD LOSS: Scant. FLUIDS: Per anesthesia. POSTOPERATIVE CONDITION: Stable. INDICATION FOR PROCEDURE: The patient is a 38-year-old male who is having had a cellulitis in his arm and had abscess over the elbow, needed to get this drained to get the purulence out. FINDINGS: The patient had some purulence around the elbow, removed with I and D. PROCEDURE NOTE: After informed consent was obtained, the patient was brought to the operating room, placed on the table in supine position, sterilely prepped and draped in normal fashion. Then positioned the right arm across the chest and made an incision with #11 blade, carried down through the skin and subcutaneous tissue, basically right over the elbow, immediately got out some purulent fluid, squeezed some more out and then roughly debrided this area with 4 x 4 and then copiously irrigated with normal saline and then packed with quarter inch iodoform packing. The area was then cleaned and dried. A 4 x 4s and Kerlix dressing placed. The patient tolerated the procedure. He is still in the OR while dictating this. He will be sent to the recovery room. Sponge, instrument and needle count correct at the end of the case. Job ID: [id number] DocumentID: [id number] Dictated Date: 11/27/2018 11:13:11 Retail Security Professional Date: 11/27/2018 16:12:37 Dictated By: FROYLAN CALIXTO DO [facility]
[2018-11-27] MEDS ORDERED: ALPRAZolam 0.25 MG (XANAX) TAB PO PRN (20:15)
[2018-11-27] MEDS ORDERED: ONDANSETRON 4 MG (ZOFRAN) ORAL DISSOLVE TAB PO PRN (20:15)
[2018-11-27] MEDS ORDERED: diphenhydrAMINE 25 MG TAB (BENADRYL) PO PRN (20:15)
[2018-11-27] MEDS ORDERED: MELATONIN 3 MG TABLET PO PRN (20:15)
[2018-11-27] MEDS ORDERED: CALCIUM CARBONATE 500 MG (TUMS) TAB.CHEW PO PRN (20:15)
[2018-11-27] MEDS ORDERED: DOCUSATE SODIUM 100 MG (COLACE) CAP PO PRN (20:15)
[2018-11-27] MEDS ORDERED: LOPERAMIDE 2 MG (IMODIUM) TABLET PO PRN (20:15)
[2018-11-27] MEDS: SENNA W/DOCUSATE (SENOKOT S) TABLET PO SCH (21:12)
[2018-11-28] VITALS: BP 120/57
[2018-11-28] MEDS: VANCOMYCIN 1,750 MG/NS 500 ML IVPB IV SCH ×4 (00:24→12:02)
[2018-11-28] MEDS: HYDROcodone/APAP 5 MG/325 MG (LORTAB) TAB PO PRN ×4 (00:39→15:01)
[2018-11-28 04:00] VITALS: BP_SYST 113; BP_SYST 120; BP_DIAS 57
[2018-11-28 06:38] LABS: BASOPHILS % (AUTO) 0 % (0-10); EOSINOPHILS % (AUTO) 0 % (0-10); HEMATOCRIT 36 % (40-54); HEMOGLOBIN 12.1 G/DL (13.3-17.7); LYMPHOCYTES % (AUTO) 14 % (12-44); MEAN CORPUSCULAR HEMOGLOBIN 29 PG (25-34); MEAN CORPUSCULAR HGB CONC 33 G/DL (32-36); MEAN CORPUSCULAR VOLUME 88 FL (80-99); MEAN PLATELET VOLUME 9.5 FL (7.4-10.4); MONOCYTES # (AUTO) 1.1 X 10^3 (0.0-1.0); MONOCYTES % (AUTO) 8 % (0-12); NEUTROPHILS # (AUTO) 10.8 X 10^3 (1.8-7.8); NEUTROPHILS % (AUTO) 78 % (42-75); PLATELET COUNT 367 10^3/uL (130-400); RED CELL DISTRIBUTION WIDTH 13.2 % (10.0-14.5); WHITE BLOOD COUNT 13.8 10^3/uL (4.3-11.0)
[2018-11-28 06:52] LABS: ALANINE AMINOTRANSFERASE 38 U/L (0-55); ALBUMIN 3.7 GM/DL (3.2-4.5); ALKALINE PHOSPHATASE 73 U/L (40-136); BILIRUBIN,TOTAL 0.2 MG/DL (0.1-1.0); BUN/CREATININE RATIO 13; CARBON DIOXIDE 21 MMOL/L (21-32); CHLORIDE 105 MMOL/L (98-107); CREATININE SERUM 0.85 MG/DL (0.60-1.30); GFR ESTIMATED > 60; GLUCOSE 215 MG/DL (70-105); POTASSIUM 4.1 MMOL/L (3.6-5.0); SODIUM 138 MMOL/L (135-145); TOTAL PROTEIN 6.7 GM/DL (6.4-8.2)
[2018-11-28 08:00] VITALS: BP 123/57
[2018-11-28] MEDS: cefTRIAXone 1,000 MG/SWFI 10 ML IV PUSH IV SCH ×2 (08:24)
[2018-11-28] MEDS: SENNA W/DOCUSATE (SENOKOT S) TABLET PO SCH (08:24)
[2018-11-28] MEDS ORDERED: SULF1TAB35 PO (10:14)
--- NOTE | 2018-11-28 10:16 | Discharge Summary ---
Diagnosis/Chief Complaint Date of Admission Nov 26, 2018 at 10:35 Date of Discharge Discharge Date: Nov 28, 2018 Admission Diagnosis Assessment: Right arm cellulitis Smoker Previous orthopedic leg surgeries Plan: Abx Dr Kendall consultation is appreciated Discharge Diagnosis (1) Right arm cellulitis Status: Acute (2) Fever Status: Resolved (3) Smoker Status: Chronic (4) Leukocytosis Status: Acute Discharge Summary Discharge Physical Exam Allergies: Coded Allergies: meperidine (Unverified Allergy, Unknown, PT HAS RECEIVED FENTANYL IN THE PAST W/O ISSUE, 07/05/14) Vitals & I&Os Vital Signs Date Time Temp Pulse Resp B/P (MAP) Pulse Ox O2 Delivery O2 Flow Rate FiO2 11/28/18 08:00 97.6 86 18 123/57 (79) 95 Room Air 11/27/18 12:10 3 General Appearance: No Apparent Distress, WD/WN Skin: Other (Resolved erythema of the right arm dressing intact) Neurologic/Psychiatric: Alert, Oriented x3, No Motor/Sensory Deficits, Normal Mood/Affect Hospital Course Was the Problem List Reviewed?: Yes Hospital course: Patient had a standard hospital course for right arm cellulitis with elbow abscess requiring incision and drainage by Dr. Kendall on 11/27/18 with resultant pus removal there was no growth to date on culture. Patient was maintain on broad-spectrum antibiotic coverage of Rocephin and vancomycin patient transition to oral Bactrim for an additional 5 days to complete treatment and Dr. Jones evaluated the wound and managed the packing and dressing change instructions. Labs (last 24 hrs) Laboratory Tests 11/28/18 05:45: White Blood Count 13.8H, Red Blood Count 4.12L, Hemoglobin 12.1L, Hematocrit 36L , Mean Corpuscular Volume 88, Mean Corpuscular Hemoglobin 29, Mean Corpuscular Hemoglobin Concent 33, Red Cell Distribution Width 13.2, Platelet Count 367, Mean Platelet Volume 9.5, Neutrophils (%) (Auto) 78H, Lymphocytes (%) (Auto) 14, Monocytes (%) (Auto) 8, Eosinophils (%) (Auto) 0, Basophils (%) (Auto) 0, Neutrophils # (Auto) 10.8H, Lymphocytes # (Auto) 2.0, Monocytes # (Auto) 1.1H, Eosinophils # (Auto) 0.0, Basophils # (Auto) 0.0, Sodium Level 138, Potassium Level 4.1, Chloride Level 105, Carbon Dioxide Level 21, Anion Gap 12, Blood Urea Nitrogen 11, Creatinine 0.85, Estimat Glomerular Filtration Rate > 60, BUN/Creatinine Ratio 13, Glucose Level 215H, Calcium Level 9.0, Corrected Calcium 9.2, Total Bilirubin 0.2, Aspartate Amino Transf (AST/SGOT) 14, Alanine Aminotransferase (ALT/SGPT) 38, Alkaline Phosphatase 73, Total Protein 6.7, Albumin 3.7 11/28/18 10:55: Microbiology 11/26/18 Blood Culture - Preliminary, Resulted No growth 11/27/18 Gram Stain - Final, Resulted 11/27/18 Anaerobic Culture, Resulted Pending 11/27/18 Surgical Culture - Preliminary, Resulted Staphylococcus species Patient resulted labs reviewed. Pending Labs Laboratory Tests 11/28/18 05:45: White Blood Count 13.8, Red Blood Count 4.12, Hemoglobin 12.1, Hematocrit 36, Mean Corpuscular Volume 88, Mean Corpuscular Hemoglobin 29, Mean Corpuscular Hemoglobin Concent 33, Red Cell Distribution Width 13.2, Platelet Count 367, Mean Platelet Volume 9.5, Neutrophils (%) (Auto) 78, Lymphocytes (%) (Auto) 14, Monocytes (%) (Auto) 8, Eosinophils (%) (Auto) 0, Basophils (%) (Auto) 0, Neutrophils # (Auto) 10.8, Lymphocytes # (Auto) 2.0, Monocytes # (Auto) 1.1, Eosinophils # (Auto) 0.0, Basophils # (Auto) 0.0, Sodium Level 138, Potassium Level 4.1, Chloride Level 105, Carbon Dioxide Level 21, Anion Gap 12, Blood Urea Nitrogen 11, Creatinine 0.85, Estimat Glomerular Filtration Rate > 60, BUN/Creatinine Ratio 13, Glucose Level 215, Calcium Level 9.0, Corrected Calcium 9.2, Total Bilirubin 0.2, Aspartate Amino Transf (AST/SGOT) 14, Alanine Aminotransferase (ALT/SGPT) 38, Alkaline Phosphatase 73, Total Protein 6.7, Albumin 3.7 11/28/18 10:55: Vancomycin Level Trough [Pending] Discussion & Recommendations Discharge Planning: <30 minutes discharge planning Discharge Home Medications: Active Scripts Active Bactrim Ds Tablet (Sulfamethoxazole/Trimethoprim) 1 Each Tablet 1 Each PO BID Reported Aspirin EC (Aspirin) 81 Mg Tablet.dr 81 Mg PO DAILY Instructions to patient/family Please see electronic discharge instructions given to patient. Clinical Quality Measures DVT/VTE Risk/Contraindication: Risk Factor Score Per Nursin RFS Level Per Nursing on Admit: 3=High Problem Qualifiers (1) Fever: Fever type: unspecified Qualified Codes: R50.9 - Fever, unspecified (2) Leukocytosis: Leukocytosis type: leukemoid reaction Qualified Codes: D72.823 - Leukemoid reaction TATIANNA SMITH DO Nov 28, 2018 10:16
[2018-11-28] MEDS ORDERED: TROUGH ORDER-PHARMACY XX NR (11:00)
--- NOTE | 2018-11-28 11:55 | NUR ---
Pt told PCT that he needed a pain shot (Lortab had been given 25 minutes before this), went into see what pain level was and patient was sleeping.
[2018-11-28 12:00] VITALS: BP 121/64
--- NOTE | 2018-11-28 13:37 | Anesthesia-General Post-Op ---
General Patient Condition Mental Status/LOC: Same as Preop Cardiovascular: Satisfactory Nausea/Vomiting: Absent Respiratory: Satisfactory Pain: Controlled Complications: Absent Post Op Complications Complications None Follow Up Care/Instructions Patient Instructions None needed. Anesthesia/Patient Condition Patient Condition Patient is doing well, no complaints, stable vital signs, no apparent adverse anesthesia problems. No complications reported per nursing. HORACIO HAUSER CRNA Nov 28, 2018 13:37
--- NOTE | 2018-11-28 15:17 | Progress Note - Surgery ---
Subjective Date Seen by a Provider: Nov 28, 2018 Time Seen by a Provider: 08:36 Subjective/Events-last exam patient states right arm still with pain. About the same as yesterday. Status post right elbow incision and drainage with packing. No new changes. Denies any nausea vomiting fever sweats chills shortness of breath or chest pain. Focused Exam Lactate Level 11/26/18 08:49: Lactic Acid Level 0.79 Objective Exam Vital Signs Date Time Temp Pulse Resp B/P (MAP) Pulse Ox O2 Delivery O2 Flow Rate FiO2 11/28/18 12:00 98.0 90 18 121/64 (83) 96 Room Air 11/28/18 08:00 97.6 86 18 123/57 (79) 95 Room Air 11/28/18 08:00 Room Air 11/28/18 04:00 98.5 95 24 120/57 (78) 95 Room Air 11/28/18 04:00 98.5 80 22 113/57 (75) 96 Room Air 11/28/18 00:00 98.2 95 24 120/57 (78) 95 Room Air 11/27/18 20:32 97.4 102 20 112/74 (87) 97 Room Air 11/27/18 20:00 Room Air 11/27/18 16:54 97.7 85 20 126/78 (94) 96 Room Air I & O 11/28/18 07:00 Intake Total 2780 ml Output Total 450 ml Balance 2330 ml Capillary Refill : Less Than 3 Seconds General Appearance: No Apparent Distress, WD/WN HEENT: PERRL/EOMI, Normal ENT Inspection, Pharynx Normal, Moist Mucous Membranes Neck: Full Range of Motion, Normal Inspection, Non Tender Respiratory: Chest Non Tender, No Accessory Muscle Use, No Respiratory Distress Cardiovascular: Regular Rate, Rhythm, No Edema, No Gallop, No JVD, No Murmur, Normal Peripheral Pulses Gastrointestinal: normal bowel sounds, non tender, soft, no organomegaly, no pulsatile mass Extremity: Normal Capillary Refill, Normal Inspection, Normal Range of Motion, Non Tender, No Calf Tenderness, No Pedal Edema, Other (right elbow region with minimal erythema and elbow pain to palpation) Neurologic/Psychiatric: Alert, Oriented x3, No Motor/Sensory Deficits, Normal Mood/Affect Skin: Warm/Dry, Other (very minimal erythema right elbow) Lymphatic: No Adenopathy Results Lab Laboratory Tests 11/28/18 05:45: White Blood Count 13.8H, Red Blood Count 4.12L, Hemoglobin 12.1L, Hematocrit 36L , Mean Corpuscular Volume 88, Mean Corpuscular Hemoglobin 29, Mean Corpuscular Hemoglobin Concent 33, Red Cell Distribution Width 13.2, Platelet Count 367, Mean Platelet Volume 9.5, Neutrophils (%) (Auto) 78H, Lymphocytes (%) (Auto) 14, Monocytes (%) (Auto) 8, Eosinophils (%) (Auto) 0, Basophils (%) (Auto) 0, Neutrophils # (Auto) 10.8H, Lymphocytes # (Auto) 2.0, Monocytes # (Auto) 1.1H, Eosinophils # (Auto) 0.0, Basophils # (Auto) 0.0, Sodium Level 138, Potassium Level 4.1, Chloride Level 105, Carbon Dioxide Level 21, Anion Gap 12, Blood Urea Nitrogen 11, Creatinine 0.85, Estimat Glomerular Filtration Rate > 60, BUN/Creatinine Ratio 13, Glucose Level 215H, Calcium Level 9.0, Corrected Calcium 9.2, Total Bilirubin 0.2, Aspartate Amino Transf (AST/SGOT) 14, Alanine Aminotransferase (ALT/SGPT) 38, Alkaline Phosphatase 73, Total Protein 6.7, Albumin 3.7 11/28/18 10:55: Vancomycin Level Trough 8.0L Microbiology 11/26/18 Blood Culture - Preliminary, Resulted No growth 11/26/18 MRSA Screen - Final, Complete MRSA not isolated 11/27/18 Gram Stain - Final, Resulted 11/27/18 Anaerobic Culture, Resulted Pending 11/27/18 Surgical Culture - Preliminary, Resulted Staphylococcus aureus Assessment/Plan Assessment/Plan Assessment/Plan Right Arm Cellulitis and Abscess at Elbow status post incision and drainage Continue wound care and packing wound Okay to CO home from surgical standpoint. Clinical Quality Measures DVT/VTE Risk/Contraindication: Risk Factor Score Per Nursin RFS Level Per Nursing on Admit: 3=High NAVDEEP NEWELL DO Nov 28, 2018 15:17
[2018-11-28 15:57] VITALS: BP_SYST 104; BP_SYST 146; BP_DIAS 51; BP_DIAS 87
[2018-11-28] MEDS ORDERED: VANCOMYCIN 1,750 MG/NS 500 ML IVPB IV SCH ×2 (20:00)
--- NOTE | 2018-12-02 14:06 | Physician Query Clarification ---
PQ-Conflicting Diagnosis Admission/Discharge Admission Date: Nov 26, 2018 at 10:35 Discharge Date: Nov 28, 2018 at 18:00 The medical record reflects the following clinical scenario: History/Risk Factors: RT arm cellulitis Clinical Findings: T100.2, P 113, R 20, BP 140/91, WBC 14.8, Lactic .79, wound Rt elbow gram stain - MRSA Treatment: IV Ceftriaxone, IV Vancomycin Question: Do you agree with the impression of the sepsis per Dr. Berg. Please document a response in Progress Note or Discharge Summary. 1. Yes, agree with MRSA sepsis 2. No, Rt arm cellulitis only 3. Other, with explanation of clinical findings 4. Clinically undetermined, no explanation for clinical findings. PHYSICIAN RESPONSE Do you agree w/Consulting Dx?: Yes Please remember a lack of response to the above will prompt a phone page by CDI/Coding staff. In responding to this query, please exercise your independent professional judgment. The purpose of this communication is to more accurately reflect the complexity of your patients condition. The fact that a question is asked does not imply that any particular answer is desired or expected. Thank you for your timely response to this clarification. Requestors name: Anup THIS PHYSICIAN QUERY FORM IS A PERMANENT PART OF THE MEDICAL RECORD ANUP WARD Dec 02, 2018 14:06 TATIANNA SMITH DO Dec 02, 2018 15:37
== END 2018-11-28 18:00 | disposition home or self-care (01) | DRG 854 ==
LOC: ER 08:02 → 4TH 10:35
PROVIDERS: ADMIT Internal Medicine; ATTEND Internal Medicine
PROC: 0J9D0ZZ Drainage of Right Upper Arm Subcutaneous Tissue and Fascia, Open Approach (ICD-10-PCS; principal; 2018-11-27 09:45)
DX: A41.02 Sepsis due to Methicillin resistant Staphylococcus aureus (principal); L03.113 Cellulitis of right upper limb; F17.210 Nicotine dependence, cigarettes, uncomplicated; M79.7 Fibromyalgia; Z23 Encounter for immunization
CPT/HCPCS: 36415; 73080; 76999; 80048; 80053; 80202; 83605; 85007; 85025; 85027; 85610; 85730; 86141; 87040; 87070; 87075; 87077; 87081; 87186; 87205; 90471; 90715; 96361; 96365; 96375

== ENCOUNTER 2022-01-11 21:21 | Emergency (ER) | payer SELFPAY ==
[~2022-01-11 21:21] MED LIST changes: +ASPI-1238 PO; +SULF1TAB38 PO
== END 2022-01-11 22:21 | disposition home or self-care (01) ==
LOC: EDUNIT# 21:21 → ER 21:22
DX: M54.50 Low back pain, unspecified (principal)

== ENCOUNTER 2022-10-03 13:10 | Emergency (ER) | payer SELFPAY ==
[~2022-10-03] VITALS: Ht 187 cm; Wt 91.0 kg
[2022-10-03] MEDS ORDERED: SULF-221 PO (13:29)
[2022-10-03] MEDS ORDERED: CEPH500T PO (13:29)
--- NOTE | 2022-10-03 13:29 | ED General ---
General Chief Complaint: Bite-Animal/Human/Insect Stated Complaint: SPIDER BITE | FACIAL SWELLING Nursing Triage Note: PT AMB TO TRIAGE PT CO OF SPIDER BITE R WRIST AREA HAS BEEN THERE FOR APPROX 1 WEEK. PT HAS FACIAL SWELLING ON R SIDE CORNER OF MOUTH RATES PAIN 06/29 Source of Information: Patient Exam Limitations: No Limitations History of Present Illness Date Seen by Provider: October 03, 2022 Time Seen by Provider: 13:27 Initial Comments Patient is a 42-year-old male who presents ED for left-sided facial swelling and crusting. Also reports lesions to his upper extremity. Initially started on his right wrist. Patient woke up with a potential spider bite. Noted some redness and swelling but the redness and swelling has improved. Started breaking out with a rash with similar type lesions to his upper extremities and now his face over the past 2 days. Denies any drainage, fever, chills, nausea vomiting, diarrhea. Has been using sohail tea with some improvement. Denies any dental pain, headache, dizziness, history of MRSA, chest pain or shortness of breath Allergies and Home Medications Allergies Coded Allergies: meperidine (Unverified Allergy, Unknown, PT HAS RECEIVED FENTANYL IN THE PAST W/O ISSUE, 07/05/14) Patient Home Medication List Home Medication List Reviewed: Yes Aspirin (Aspirin EC) 81 Mg Tablet.dr, 81 MG PO DAILY, (Reported) Entered as Reported by: ROSE ANDRE on 11/26/18 1300 Cephalexin (Cephalexin) 500 Mg Tablet, 500 MG PO QID Prescribed by: TIFF PAYNE on 10/03/22 1329 Sulfamethoxazole/Trimethoprim (Bactrim Ds Tablet) 1 Each Tablet, 1 EACH PO BID Prescribed by: TATIANNA SMITH on 11/28/18 1014 Sulfamethoxazole/Trimethoprim (Bactrim Ds Tablet) 800 Mg-160 Mg Tablet, 1 EACH PO BID Prescribed by: TIFF PAYNE on 10/03/22 1329 Review of Systems Review of Systems Constitutional: No chills, No diaphoresis, No malaise, No weakness EENTM: No ear pain, No blurred vision, No double vision, No mouth pain, No mouth swelling Respiratory: No cough, No dyspnea on exertion Cardiovascular: No chest pain Gastrointestinal: No abdominal pain, No nausea, No vomiting Genitourinary: No decreased output, No discharge Musculoskeletal: No back pain, No joint pain, No joint swelling, No muscle pain Skin: change in color Past Mrsizex-Rvfufk-Nmaihd Hx Patient Social History Tobacco Use?: Yes Tobacco type used: Cigarettes Smoking Status: Current Someday Smoker Use of E-Cig and/or Vaping dev: No Substance use?: No Alcohol Use?: No Pt feels they are or have been: No Immunizations Up To Date First/Initial COVID19 Vaccinat: YES Past Medical History Surgery/Hospitalization HX: SURG R ANKLE Surgeries: Yes Appendectomy, Orthopedic Respiratory: No Cardiac: No Neurological: No Reproductive Disorders: No Sexually Transmitted Disease: No Gastrointestinal: No Musculoskeletal: Yes (RIGHT ANKLE) Fibromyalgia Endocrine: No Cancer: No Psychosocial: No Integumentary: No Blood Disorders: No Family Medical History Other Conditions/Hx Physical Exam Vital Signs Vital Signs - First Documented 10/03/22 13:15 Temp 36.9 Pulse 133 Resp 18 B/P (MAP) 114/74 (87) Pulse Ox 97 Capillary Refill : Less Than 3 Seconds Height, Weight, BMI Height: 6'3.00" Weight: 240lbs. 0.0oz. 108.699382pi; 26.00 BMI Method:Stated General Appearance: No Apparent Distress, WD/WN Eyes: Bilateral Eye Normal Inspection, Bilateral Eye PERRL, Bilateral Eye EOMI HEENT: PERRL/EOMI, TMs Normal, Normal ENT Inspection, Pharynx Normal Neck: Full Range of Motion, Normal Inspection, Non Tender Respiratory: Chest Non Tender, Lungs Clear, Normal Breath Sounds, No Accessory Muscle Use Cardiovascular: Regular Rate, Rhythm, No Edema, No Gallop, No JVD, No Murmur Gastrointestinal: Normal Bowel Sounds, No Organomegaly, No Pulsatile Mass, Non Tender Back: Normal Inspection, No CVA Tenderness, No Vertebral Tenderness Extremity: Normal Capillary Refill, Normal Range of Motion, Non Tender Neurologic/Psychiatric: Alert, Oriented x3, No Motor/Sensory Deficits, Normal Mood/Affect Skin: Other (Erythematous crusty lesions to the upper extremity left side of face. No fluctuant mass, active drainage.) Progress/Results/Core Measures Suspected Sepsis SIRS Temperature: Pulse: 133 Respiratory Rate: 18 Blood Pressure 114 /74 Mean: 87 Results/Orders Vital Signs/I&O 10/03/22 10/03/22 13:15 13:35 Temp 36.9 Pulse 133 133 Resp 18 18 B/P (MAP) 114/74 (87) 114/74 Pulse Ox 97 97 Capillary Refill : Less Than 3 Seconds Blood Pressure Mean: 87 Departure Communication (PCP) Reviewed previous ER visits, H&P, lab testing. Differential diagnosis of a spider bite, bug bite, cellulitis, bacterial infection. concern for bacterial skin infection. Possible spider bite versus staph versus MRSA. No fever, chills. He states the rash appears to be improving some however he is concerned that it has spread. No fluctuant mass need incision and drainage. Will discharge with Keflex and Bactrim to cover MRSA. Avoid picking at the area. Topical Neosporin bacitracin twice a day. Keep the area clean. Denies drug use or alcohol use. Denies history of diabetes. If any worsening rash to return back to ED. No oral lesions Impression Primary Impression: Skin rash Disposition: HOME, SELF-CARE Condition: Stable Departure-Patient Inst. Decision time for Depature: 13:28 Referrals: [facility] [place] [facility] [place],LOCAL PHYSICIAN (PCP) Primary Care Physician Patient Instructions: Skin Rash Add. Discharge Instructions: If worsening rash return back to ED for further evaluation. All discharge instructions reviewed with patient and/or family. Voiced understanding. Scripts Cephalexin (Cephalexin) 500 Mg Tablet 500 MG PO QID for 7 Days, #28 TAB Prov: AURELIA BRIGGS 10/03/22 Sulfamethoxazole/Trimethoprim (Bactrim Ds Tablet) 800 Mg-160 Mg Tablet 1 EACH PO BID for 7 Days, #14 TAB Prov: AURELIA BRIGGS 10/03/22 AURELIA BRIGGS October 03, 2022 13:29
[2022-10-03 13:35] VITALS: BP 114/74
== END 2022-10-03 13:35 | disposition home or self-care (01) ==
LOC: EDUNIT# 13:10 → ER 13:12
DX: R21 Rash and other nonspecific skin eruption (principal); F17.210 Nicotine dependence, cigarettes, uncomplicated; Z28.311 Partially vaccinated for COVID-19
CPT/HCPCS: 99281

== ENCOUNTER 2022-12-26 09:35 | Emergency (ER) | payer SELFPAY ==
[~2022-12-26] VITALS: Ht 187 cm; Wt 100.0 kg
[~2022-12-26 09:35] MED LIST changes: +CEPH500T PO; +SULF-221 PO
[2022-12-26] MEDS ORDERED: CEPHALEXIN 250 MG CAPSULE PO STA (09:54)
[2022-12-26] MEDS ORDERED: IBUPROFEN 600 MG TABLET PO ONE (10:00)
[2022-12-26] MEDS ORDERED: TRIM/SULFAMETH 160/800 (SEPTRA DS) TAB PO ONE (10:00)
[2022-12-26] MEDS ORDERED: LIDOCAINE 2% w/EPI 1:100,000 20 ML VIAL INJ ONE (10:00)
--- NOTE | 2022-12-26 10:01 | ED General ---
General Chief Complaint: Skin/Wound Problems Stated Complaint: BOIL ON NECK Nursing Triage Note: PT AMB TO RM 3 PT CO OF SWELLING AND POSS ABCESS ON BACK OF NECK, STARTED YESTERDAY. DENIES DRAINAGE AT THIS X. PT HAS HX OF ABCESS ON NECK. 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 He noticed some swelling yesterday and pain worsening today. No fever that he knows of. He believes he felt a sting recently, unsure if he was actually stung or bitten. He is up-to-date on his tetanus vaccine. He is otherwise denying any other acute complaints including no drainage from it as of yet. Allergies and Home Medications Allergies Coded Allergies: meperidine (Unverified Allergy, Unknown, PT HAS RECEIVED FENTANYL IN THE PAST W/O ISSUE, 07/05/14) Patient Home Medication List Home Medication List Reviewed: Yes Aspirin (Aspirin EC) 81 Mg Tablet.dr, 81 MG PO DAILY, (Reported) Entered as Reported by: ROSE ANDRE on 11/26/18 1300 Cephalexin (Cephalexin) 500 Mg Tablet, 500 MG PO QID Prescribed by: TIFF PAYNE on 10/03/22 1329 Cephalexin (Cephalexin) 500 Mg Tablet, 500 MG PO QID Prescribed by: AURELIA FISHER on 12/26/22 1003 Mupirocin (Mupirocin) 2 % Oin.pf.shahida, 1 GM TP BID Prescribed by: AURELIA FISHER on 12/26/22 1003 Sulfamethoxazole/Trimethoprim (Bactrim Ds Tablet) 1 Each Tablet, 1 EACH PO BID Prescribed by: TATIANNA SMITH on 11/28/18 1014 Sulfamethoxazole/Trimethoprim (Bactrim Ds Tablet) 800 Mg-160 Mg Tablet, 1 EACH PO BID Prescribed by: TIFF PAYNE on 10/03/22 1329 Sulfamethoxazole/Trimethoprim (Bactrim Ds Tablet) 1 Each Tablet, 1 EACH PO BID Prescribed by: AURELIA FISHER on 12/26/22 1003 Review of Systems Review of Systems Constitutional: No fever EENTM: no symptoms reported Respiratory: no symptoms reported Cardiovascular: no symptoms reported Gastrointestinal: no symptoms reported Skin: see HPI Past Dtlmukx-Nlpwym-Gywwqn Hx Patient Social History Tobacco Use?: Yes Tobacco type used: Cigarettes Smoking Status: Current Everyday Smoker Substance use?: No Alcohol Use?: No Pt feels they are or have been: No Immunizations Up To Date First/Initial COVID19 Vaccinat: YES Second COVID19 Vaccination Santos: YES Third COVID19 Vaccination Date: YES Past Medical History Surgery/Hospitalization HX: SURG R ANKLE Surgeries: Yes Appendectomy, Orthopedic Respiratory: No Cardiac: No Neurological: No Reproductive Disorders: No Sexually Transmitted Disease: No Gastrointestinal: No Musculoskeletal: Yes (RIGHT ANKLE) Fibromyalgia Endocrine: No Cancer: No Psychosocial: No Integumentary: No Blood Disorders: No Family Medical History Other Conditions/Hx Physical Exam Vital Signs Vital Signs - First Documented 12/26/22 09:40 Temp 36.1 Pulse 125 Resp 18 B/P (MAP) 145/100 (115) Pulse Ox 97 Capillary Refill : Less Than 3 Seconds Height, Weight, BMI Height: 6'3.00" Weight: 240lbs. 0.0oz. 108.201559bg; 28.00 BMI Method:Stated General Appearance: No Apparent Distress, WD/WN Eyes: Bilateral Eye Normal Inspection HEENT: PERRL/EOMI, Normal ENT Inspection, Pharynx Normal Neck: Full Range of Motion, Supple, Other (Posterior neck along the cervical spine around the hairline with area of erythema and induration, no abscess palpated) Respiratory: Chest Non Tender, Lungs Clear, Normal Breath Sounds, No Accessory Muscle Use, No Respiratory Distress Cardiovascular: Regular Rate, Rhythm, No Edema, Normal Peripheral Pulses Gastrointestinal: Normal Bowel Sounds, Non Tender, Soft; No Distended, No Guarding Back: Normal Inspection, No CVA Tenderness Extremity: Normal Capillary Refill, Normal Inspection, Normal Range of Motion, Non Tender, No Calf Tenderness, No Pedal Edema Neurologic/Psychiatric: Alert, No Motor/Sensory Deficits, Normal Mood/Affect Skin: Normal Color, Warm/Dry, Rash Procedures/Interventions I&D : Site: posterior neck I & D Procedure: betadine prep Progress Stab incision with an 18-gauge needle with about half a cc of purulent drainage noted followed by blood Progress/Results/Core Measures Suspected Sepsis SIRS Temperature: Pulse: 125 Respiratory Rate: 18 Blood Pressure 145 /100 Mean: 115 Results/Orders My Orders Orders - AURELIA FISHER MD Ibuprofen Tablet (Ibuprofen Tablet) (12/26/22 10:00) Sulfamethoxazole/Trimet Ds Tab (Bactrim (12/26/22 10:00) Cephalexin Capsule (Cephalexin Capsule) (12/26/22 09:54) Lidocaine/Epi Mpf 2% 1:200,000 (Xylocain (12/26/22 10:15) Lidocaine/Epi Mpf 2% 1:200,000 (Xylocain (12/26/22 10:06) Medications Given in ED Current Medications Medications Dose Ordered Sig/Laura Route Start Time Stop Time Status Last Admin Dose Admin Ibuprofen 600 mg ONCE ONCE PO 12/26/22 10:00 12/26/22 10:01 DC 12/26/22 10:03 600 MG Lidocaine/ Epinephrine 20 ml ONCE ONCE INJ 12/26/22 10:15 12/26/22 10:16 DC 12/26/22 10:07 20 ML Trimethoprim/ Sulfamethoxazole 1 ea ONCE ONCE PO 12/26/22 10:00 12/26/22 10:01 DC 12/26/22 10:03 1 EA Vital Signs/I&O 12/26/22 09:40 Temp 36.1 Pulse 125 Resp 18 B/P (MAP) 145/100 (115) Pulse Ox 97 Capillary Refill : Less Than 3 Seconds Blood Pressure Mean: 115 Progress Note : Progress Note 42-year-old male with above history coming in with obvious cellulitis and induration on his posterior neck. I do not palpate any fluctuance that would be concerning for abscess. I did a [id number] ultrasound showing a punctate area of fluid that I will attempt to put a needle into to allow it to drain a little easier. About half a cc drained out of purulent drainage which is about the amount that was seen on ultrasound. I suspect he is in the early stages of forming an abscess and this is phlegmon. I reviewed his history including his microbiological reports, and he has grown out MRSA that is sensitive to Bactrim. He will be given a dose here followed by prescription. He is well-appearing, afebrile, and does not clinically appear like he needs IV antibiotics and admission. Departure Impression Primary Impression: Phlegmonous cellulitis Disposition: HOME, SELF-CARE Condition: Stable Departure-Patient Inst. Decision time for Depature: 10:30 Referrals: [facility] M[facility]OVERN,LOCAL PHYSICIAN (PCP) Primary Care Physician Patient Instructions: MRSA (DC) Add. Discharge Instructions: We did send antibiotics that cover the bacteria you have grown out in the past. Will do a slightly more prolonged course than you have had in the past. We also recommend you start taking baths with the chlorhexidine scrub that we have sent home with you for the next couple of days. You could also put mupirocin on your wounds which was sent as a prescription as well. Take ibuprofen and/or Tylenol as needed for pain. If it continues to worsen after 2 to 3 days of antibiotics, we want you to be reevaluated by doctor. Unfortunately, you have shown that you have MRSA on your skin which is a bacteria. Since you have had many recurrent infections, it can be difficult to truly "get rid of it". We recommend following up with [facility] as well. Scripts Mupirocin (Mupirocin) 2 % Oin.pf.shahida 1 GM TP BID for 10 Days, #1 TUBE Prov: AURELIA FISHER MD 12/26/22 Cephalexin (Cephalexin) 500 Mg Tablet 500 MG PO QID for 10 Days, #40 TAB Prov: AURELIA FISHER MD 12/26/22 Sulfamethoxazole/Trimethoprim (Bactrim Ds Tablet) 1 Each Tablet 1 EACH PO BID for 10 Days, #20 TAB Prov: AURELIA FISHER MD 12/26/22 Work/School Note: Work Release Form Date Seen in the Emergency Department: Dec 27, 2022 Return to Work: Dec 27, 2022 Restrictions: No Restrictions AURELIA FISHER MD Dec 26, 2022 10:01
[2022-12-26] MEDS ORDERED: SULF1TAB38 PO (10:03)
[2022-12-26] MEDS ORDERED: CEPH500T PO (10:03)
[2022-12-26] MEDS ORDERED: MUPI1OIN6 TP (10:03)
[2022-12-26] MEDS ORDERED: LIDOCAINE 2% w/EPI 1:200,000 20 ML VIAL ONE (10:06)
[2022-12-26] MEDS ORDERED: EPI INJ ONE (10:15)
[2022-12-26] MEDS ORDERED: LIDOCAINE MPF 2% INJ ONE (10:15)
[2022-12-26 10:24] VITALS: BP 140/88
== END 2022-12-26 10:23 | disposition home or self-care (01) ==
LOC: EDUNIT# 09:35 → ER 09:37
DX: L03.221 Cellulitis of neck (principal); F17.210 Nicotine dependence, cigarettes, uncomplicated
CPT/HCPCS: 10060